=== PATIENT | female | born 1955 | race American Indian/Alaskan Native ===

== ENCOUNTER 2018-03-14 09:40 | Outpatient (CLI) | payer MEDICARE, OTHER ==
--- NOTE | 2018-03-15 07:46 | XRay Report ---
FINAL REPORT EXAM: XR SPINE LUMBOSACRAL 6+V HISTORY: LOWER BACK PAIN TECHNIQUE: Seven views of the lumbar spine including AP, laterals, obliques, flexion and extension PRIORS: None. FINDINGS: There is no evidence of acute fracture. Vertebral body heights and alignment are maintained. Patient is status post posterior fusion at L2-3. Neutral and flexion images demonstrates slight spondylo listhesis L3 which reduces on extension. There is no spondylolysis. Spondylolisthesis is probably on the basis of facet arthropathy which is moderate in the mid to lower lumbar spine. At L3-4 there is also mild intervertebral narrowing, endplate sclerosis and marginal spurring. IMPRESSION: L3-4 degenerative disc disease. Mid to lower lumbar moderate facet arthropathy. L2-3 surgical fusion. L3 mild grade 1 spondylolisthesis in neutral and flexion which reduces with extension.
== END 2018-03-14 09:41 | disposition home or self-care (01) ==
LOC: SPVIMAG 09:40
PROVIDERS: ATTEND Physical Medicine & Rehabilitation
DX: M43.16 Spondylolisthesis, lumbar region (principal); M48.061 Spinal stenosis, lumbar region without neurogenic claudication; Z98.1 Arthrodesis status
CPT/HCPCS: 72114